=== PATIENT | male | born 1995 | race Asian ===

== ENCOUNTER → 2016-04-26 | Outpatient (CLI) | payer OTHER ==
--- NOTE | 2016-04-26 15:29 | DIAGNOSTIC IMAGING REPORT ---
LEFT KNEE 4 OR MORE CLINICAL HISTORY: Left knee pain and COMPARISON: None. DISCUSSION: There is a crescent-shaped bony density projected anterior to one of the femoral condyles and the lateral view. This may reflect a small articular fragment. There is no dislocation. There is lateral patellar tilt. There is fragmentation of the anterior tibial tuberosity which is likely developmental. There is subtle irregularity of the dorsal aspect of the patella. This could be the origin of the small articular fragment. IMPRESSION: 1. Suspected small sliver-like articular fragment projected over the anterior aspect of the knee 2. Lateral patellar tilt with mild irregularity of the articular surface of the patella 3. An MRI might be considered in follow-up for further evaluation. Electronically signed by: Ghassan Lantigua M.D. 04/26/2016 3:27 PM Dictated Date/Time: 04/26/2016 3:25 PM
== END | disposition home or self-care (01) ==
LOC: C.RDSM 14:18
PROVIDERS: ATTEND Family Medicine
DX: M25.562 Pain in left knee (principal); M25.862 Other specified joint disorders, left knee

== ENCOUNTER → 2016-05-06 | Outpatient (CLI) | payer OTHER ==
--- NOTE | 2016-05-06 20:12 | DIAGNOSTIC IMAGING REPORT ---
MRI left knee LEFT LOWER EXT JOINT WITHOUT CLINICAL HISTORY: M25.562 trauma. Pain. TECHNIQUE: MRI multi axial acquisition COMPARISON STUDY: None FINDINGS: Generalized bone contusion involving the lateral femoral condyle. Focal loss of articular surface anterior aspect lateral femoral condyle. This measures approximate 8 mm maximum diameter. Contusion medial aspect patella. Joint effusion. Several very small loose bodies within the suprapatellar bursal region. Partial tear medial patellar retinaculum. Slight lateral angulation of the patella. No evidence of dislocation. Patellar groove is somewhat shallow. Apparent small avulsion from the medial inferior aspect of the patella. Collateral ligaments are intact. Small linear loose body adjacent to the medial femoral condyle. Large and potentially is from the lateral femoral condyle versus medial inferior patellar margin. Collateral limits are intact. Anterior and posterior cruciate ligaments are unremarkable. I evaluation of menisci shows no evidence for acute meniscal tear. IMPRESSION: 1. Joint effusion with several very small loose bodies.. 2. Considerable contusion lateral femoral condyle as well as medial inferior aspect of the patellar margin. 3. Small linear cortical avulsion adjacent to the medial femoral condyle possibly originating from the medial inferior margin of the patella and/or less likely anterior articular services the lateral femoral condyle. 4. Small partial tear medial patellar retinaculum. 5. Slight lateral angulation of the patella with a somewhat shallow patellofemoral groove. A prior lateral patellar dislocation may account for a significant component of these findings. Electronically signed by: Stewart Lewis M.D. 05/06/2016 8:11 PM Dictated Date/Time: 05/06/2016 8:02 PM
== END | disposition home or self-care (01) ==
LOC: C.MRI 19:04
PROVIDERS: ATTEND Family Medicine
DX: M25.562 Pain in left knee (principal)